=== PATIENT | male | born 1980 | race Asian ===

== ENCOUNTER → 2018-09-17 | Outpatient (CLI) | payer OTHER ==
[2018-09-17 09:21] LABS: BASOPHIL % 0.4 % (0-2); PLATELET COUNT 206 x10^3mcL (130-400); RED CELL DISTRIBUTION WIDTH 13.3 % (11.5-14.5)
[2018-09-17 09:33] LABS: ALKALINE PHOSPHATASE 80 U/L (46-116); ALT/SGPT 25 U/L (16-63); AST/SGOT 12 U/L (15-37); BILIRUBIN DIRECT 0.18 mg/dL (0.0-0.2); CALCIUM 8.9 mg/dL (8.5-10.1); CARBON DIOXIDE 27.7 mmol/L (21-32); CHLORIDE SERUM 107 mmol/L (98-107); CHOLESTEROL 156 mg/dL (<200); CHOLESTEROL/HDL RATIO 3.4; CREATININE SERUM 1.2 mg/dL (0.7-1.3); GFR1 > 60 mL/min; GLUCOSE SERUM 102 mg/dL (74-106); HDL CHOLESTEROL 46 mg/dL (40-60); POTASSIUM SERUM 4.7 mmol/L (3.5-5.1); SODIUM SERUM 144 mmol/L (136-145); TOTAL PROTEIN, SERUM 7.2 g/dL (6.4-8.2); TRIGLYCERIDES 43 mg/dL (<150)
== END | disposition home or self-care (01) ==
LOC: LB 08:42
PROVIDERS: Internal Medicine
DX: Z00.00 Encounter for general adult medical examination without abnormal findings (principal)

== ENCOUNTER → 2018-12-11 | Outpatient (CLI) | payer OTHER | END | disposition home or self-care (01) | LOC: LB 16:45 | DX: E55.9 Vitamin D deficiency, unspecified (principal) ==

== ENCOUNTER 2019-03-16 07:31 | Day surgery (SDC) | payer OTHER ==
[~2019-03-16] VITALS: Ht 167.6 cm; Wt 75.3 kg
[2019-03-16 07:50] VITALS: BP 114/70
[2019-03-16 13:47] VITALS: BP 92/64
== END 2019-03-16 11:30 | disposition home or self-care (01) ==
LOC: DS 07:31 → GI 09:00 → OR 09:00 → DS 11:30
DX: K21.9 Gastro-esophageal reflux disease without esophagitis (principal); Z79.899 Other long term (current) drug therapy; Z98.890 Other specified postprocedural states
CPT/HCPCS: 43235; J1200; J1610; J2250; J2310; J3010; J3490

== ENCOUNTER → 2020-03-30 | Outpatient (CLI) | payer OTHER ==
[2020-03-30 11:32] LABS: BASOPHIL % 1.1 % (0.2-1.5); PLATELET COUNT 230 x10^3mcL (152-348); RED CELL DISTRIBUTION WIDTH 12.8 % (12.1-16.2)
[2020-03-30 11:33] LABS: ALBUMIN 4.1 g/dL (3.4-5.0); ALKALINE PHOSPHATASE 81 U/L (46-116); ALT/SGPT 36 U/L (16-63); AST/SGOT 19 U/L (15-37); BILIRUBIN TOTAL 0.8 mg/dL (0.20-1.00); CALCIUM 8.5 mg/dL (8.5-10.1); CARBON DIOXIDE 29.1 mmol/L (21-32); CHLORIDE SERUM 106 mmol/L (98-107); CHOLESTEROL 177 mg/dL (<200); CREATININE SERUM 1.1 mg/dL (0.7-1.3); GFR1 > 60 mL/min; GLUCOSE SERUM 92 mg/dL (74-106); HDL CHOLESTEROL 44 mg/dL (40-60); SODIUM SERUM 143 mmol/L (136-145); TOTAL PROTEIN, SERUM 7.3 g/dL (6.4-8.2); TRIGLYCERIDES 110 mg/dL (<150)
[2020-03-31 08:08] LABS: BILIRUBIN DIRECT 0.14 mg/dL (0.0-0.2)
== END | disposition home or self-care (01) ==
LOC: LB 10:53
PROVIDERS: ATTEND Internal Medicine
DX: Z00.00 Encounter for general adult medical examination without abnormal findings (principal)